=== PATIENT | female | born 1990 | race Caucasian/White ===

== ENCOUNTER 2018-08-08 20:08 | Emergency (ER) | payer MEDICAID ==
[2018-08-08 20:20] VITALS: BP 116/92
[2018-08-08] MEDS ORDERED: ALBUTEROL 3 ML DEYVIAL IH ONE (20:29)
[2018-08-08] MEDS ORDERED: IBUPROFEN 600 MG TAB PO ONE (20:29)
--- NOTE | 2018-08-08 20:34 | EDPHY ---
General Time Seen by Provider: 08/08/18 20:22 Narrative: CLINICAL IMPRESSION: Viral URI with cough ASSESSMENT/PLAN: 28-year-old otherwise healthy male presents to the emergency department with 1 week of URI symptoms and cough likely from her significant other. Patient arrives with stable vital signs, afebrile, no hypoxia or respiratory distress. No clinical signs of acute bacterial sinusitis, tonsillitis, pharyngitis, or low story disease. Symptoms improved with an albuterol neb and ibuprofen. We discussed influenza testing although she is out of the window for treatment and she therefore declined. Encouraged supportive care, PCP follow-up, warning signs return to ED sooner outlined in person and discharge papers. DIFFERENTIAL DX: Differential includes but not limited to viral URI, reactive airway disease, bronchitis, pneumonia, influenza, influenza like illness ED PROCEDURES: See lab and/or imaging results below Influenza testing deferred given the patient has been symptomatic for 1 week. ED COURSE: 9:20 P.M.:. PATIENT REASSESSED, FEELING MUCH BETTER, READY TO BE DISCHARGED HOME CHIEF COMPLAINT: Cough, fever, congestion HPI: 28-year-old female presents to the emergency department with 1 week of URI symptoms with cough. Her significant other had similar symptoms and she believes she got ill from him. She did not have a flu shot this year. She has no underlying history of asthma or pulmonary disease. She smokes marijuana but not cigarettes. She reports subjective fevers at home but has not had a documented temperature and is afebrile in the ER. She is otherwise healthy. She has not followed up with a primary care provider. PAST MEDICAL HISTORY: None reported none reported Pertinent Past Surgical History: None reported Family History: Noncontributory Social History: Smokes marijuana REVIEW OF SYSTEMS: A full 10 point review of systems was negative except for those mentioned in HPI. PHYSICAL EXAM: General Appearance: Alert, oriented, appropriate, cooperative, NAD, well hydrated, non-toxic appearing, VSS, no hypoxia. HEENT: TMs are clear bilaterally no perforation or FB, no injection, no evidence of serous or mucopurulent otitis. Oropharynx clear is no erythema or exudates, no tonsillar hypertrophy or asymmetry. Dentition without abnormality. Neck: Supple, nontender, no lymphadenopathy, no midline pain, FROM, no meningismus. Respiratory: There are no retractions, lungs are clear to auscultation. Cardiac: Regular rate and rhythm, no murmurs or gallops. Skin: Warm, dry, no rashes, no nodules on palpation. MEDICAL DECISION MAKING: Patient was seen independently. Secondary supervising physician at time of evaluation was: Dr. Berrios. Diagnosis: Viral URI with cough. New, requires workup Summary: See Assessment and Plan for summary of ED visit Clinical lab tests: Not ordered. Independent visualization of images, tracing, or specimens: Not ordered. Patient Progress: Improved. - History Smoking Status: Current every day smoker - Objective Vital Signs: Initial Vital Signs Temperature (C) 36.9 C 08/08/18 20:18 Heart Rate 86 08/08/18 20:18 Respiratory Rate 16 08/08/18 20:18 Blood Pressure 116/92 H 08/08/18 20:18 O2 Sat (%) 98 08/08/18 20:18 O2 Delivery Mode Room Air Allergies/Adverse Reactions: No Known Allergies Allergy (Unverified 08/08/18 20:24) Home Medications: Medication Instructions Recorded NK [No Known Home Meds] 08/08/18 Medications Given: Discontinued Medications Albuterol (Proventil Neb) 3 ml IH EDNOW ONE Stop: 08/08/18 20:30 Last Admin: 08/08/18 20:41 Dose: 3 ml Albuterol Sulfate (Proventil Inh Prepack) 1 mdi TAKEHOME EDNOW ONE Stop: 08/08/18 21:13 Last Admin: 08/08/18 21:26 Dose: 1 mdi Ibuprofen (Motrin) 600 mg PO EDNOW ONE Stop: 08/08/18 20:30 Last Admin: 08/08/18 20:42 Dose: 600 mg Departure - Departure Disposition: Home, Routine, Self-Care Clinical Impression: Viral URI with cough Condition: Good Instructions: Viral Syndrome (ED) Additional Instructions: DISCHARGE INSTRUCTIONS FROM YOUR DOCTOR Thank you for visiting our emergency department today. Please keep in mind that discharge from the emergency department does not mean that there is nothing wrong - it simply means that we have not identified an emergency condition that requires further evaluation or treatment in the hospital. You should always plan to follow up with primary care for re-evaluation of your condition in the next 2-3 days. If you have been referred to a specialist, please call as soon as possible (today or tomorrow) to schedule your follow up appointment at the appropriate time. YOU ARE LIKELY SUFFERING FROM A VIRAL SYNDROME. AN ALBUTEROL INHALER WITH SPACER WAS PROVIDED. PLEASE USE THIS EVERY 4 HR NEEDED FOR CHEST TIGHTNESS AND COUGH. STAY WELL-HYDRATED. USE TYLENOL AND IBUPROFEN FOR PAIN OR CHEST TIGHTNESS. YOUR IBUPROFEN DOSES 600 MG WITH FOOD AND A LARGE GLASS OF WATER. FOLLOW UP WITH A PRIMARY CARE PROVIDER. IF YOU DO NOT HAVE A PRIMARY CARE A REFERRAL WAS GIVEN. RETURN TO THE EMERGENCY DEPARTMENT IMMEDIATELY FOR SEVERE SHORTNESS OF BREATH, CHEST PAIN, DOCUMENTED FEVER GREATER THAN 100.4, TROUBLE STAYING HYDRATED, SEVERE WEAKNESS, OR ANY OTHER CONCERN. People present with illnesses and injuries in different ways, and it is always possible that we have missed something. You may always return for re-evaluation if symptoms worsen or if they are not improving or if you develop new/different symptoms. Again, thank you for choosing our emergency department. We hope that you feel better. Referrals: NONE *PRIMARY CARE P,. [Primary Care Provider] - As per Instructions Onesimo Vargas MD [Medical Doctor] - 1-2 days without fail
[2018-08-08] MEDS ORDERED: ALBUTEROL INH PREPACK MDI TAKEHOME ONE (21:12)
== END 2018-08-08 21:32 | disposition home or self-care (01) ==
DX: J06.9 Acute upper respiratory infection, unspecified (principal); F17.200 Nicotine dependence, unspecified, uncomplicated; F12.90 Cannabis use, unspecified, uncomplicated
CPT/HCPCS: J7613